=== PATIENT | female | born 2000 | race Hispanic/Latino ===

== ENCOUNTER 2019-07-26 08:05 | Outpatient (CLI) | payer OTHER ==
--- NOTE | 2019-07-26 09:02 | CT ---
CT ABDOMEN AND PELVIS WITH ORAL AND IV CONTRAST: Date: 07/26/2019 HISTORY: Mid/lower abdominal pain and bloating. Suprapubic abdominal pain. FINDINGS: There are no previous exams for comparison. The lung bases are clear. The liver, spleen, pancreas, adrenal glands, and kidneys are normal. No yossi cified gallstones are seen. No free air, free fluid, or lymphadenopathy noted in the abdomen or pelvi s. Uterus and ovaries are present. The small bowel loops are not abnormally dilated. Normal appearing appendix is noted. The aorta is of normal caliber. There is an acute angulation of the coccyx. IMPRESSION: No significant abnormalities are seen. POS: [facility]
== END 2019-07-26 08:06 | disposition home or self-care (01) ==
LOC: SCSCT 08:05
PROVIDERS: ATTEND Internal Medicine
DX: R14.0 Abdominal distension (gaseous) (principal); R10.33 Periumbilical pain
CPT/HCPCS: 74177

== ENCOUNTER 2024-12-20 07:37 | Outpatient (CLI) | payer BC | END 2024-12-20 07:38 | disposition home or self-care (01) | LOC: SCSMRI 07:37 | PROVIDERS: ATTEND Student in an Organized Health Care Education/Training Program | DX: D25.9 Leiomyoma of uterus, unspecified (principal); E28.1 Androgen excess; R19.09 Other intra-abdominal and pelvic swelling, mass and lump | CPT/HCPCS: 74183 ==